=== PATIENT | male | born 2000 | race African-American/Black ===

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

== ENCOUNTER 2020-03-15 17:52 | Emergency (ER) | payer OTHER, SELFPAY ==
[2020-03-15 17:57] VITALS: BP 113/71; PULSE 62; RESP 18; TEMP 37; O2SAT 100
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
[2020-03-15 18:50] VITALS: BP 118/73; PULSE 68; RESP 15; O2SAT 97
== END 2020-03-15 18:52 | disposition home or self-care (01) ==
LOC: ANHED 18:50
PROVIDERS: Emergency Provider Family Medicine
DX: S16.1XXA Strain of muscle, fascia and tendon at neck level, initial encounter (principal); V49.50XA Passenger injured in collision with unspecified motor vehicles in traffic accident, initial encounter
CPT/HCPCS: 99283

== ENCOUNTER 2021-04-19 10:45 | Emergency (ER) | payer OTHER, SELFPAY ==
--- NOTE | ~2021-04-19 | XR_ITS ---
EXAMINATION: XR elbow RT min 3V DATE: 04/19/2021 11:29 INDICATION: Right elbow injury and pain. TECHNIQUE: 4 views of right elbow were obtained. COMPARISON: None. FINDINGS: Bone alignment is normal. No fracture. Joint spaces are well maintained. There is no elbow joint effusion. IMPRESSION: 1. No fracture. Reviewed, dictated and finalized at location A. IMPRESSION: 1. No fracture.
--- NOTE | ~2021-04-19 | XR_ITS ---
EXAMINATION: XR ankle RT min 3V DATE: 04/19/2021 11:29 INDICATION: Lateral right ankle pain post trauma TECHNIQUE: Anteroposterior, oblique, mortise, and lateral views of the right ankle were obtained. COMPARISON: None. FINDINGS: Alignment is normal. No fracture. Small heterotopic ossicle near the tip of the lateral malleolus wi thout evident donor site likely sequela of chronic ankle sprain. Joint spaces are well maintained. N o ankle joint effusion. The soft tissues are unremarkable. IMPRESSION: 1. No acute osseous abnormality. Reviewed, dictated and finalized at location B.
[2021-04-19 10:48] VITALS: BP 104/68; PULSE 71; RESP 15; TEMP 37; O2SAT 100
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
--- NOTE | 2021-04-19 11:18 | PC.NURSE ---
pt to xray
[2021-04-19 11:19] VITALS: BP 104/68; PULSE 71; RESP 15; O2SAT 100
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
[2021-04-19 12:39] VITALS: BP 109/56; PULSE 72; RESP 16; O2SAT 100
== END 2021-04-19 12:39 | disposition home or self-care (01) ==
PROVIDERS: Emergency Provider Family Medicine
DX: S50.01XA Contusion of right elbow, initial encounter (principal); S93.401A Sprain of unspecified ligament of right ankle, initial encounter; V03.10XA Pedestrian on foot injured in collision with car, pick-up truck or van in traffic accident, initial encounter
CPT/HCPCS: 73080; 73610; 99284

== ENCOUNTER 2023-11-13 11:43 | Emergency (ER) | payer OTHER, SELFPAY ==
[2023-11-13 12:10] VITALS: BP 117/76; PULSE 59; RESP 16; TEMP 36.6; O2SAT 100
[2023-11-13 15:17] VITALS: BP 119/80; PULSE 95; RESP 15; O2SAT 100
--- NOTE | 2023-11-13 16:08 | ED.SKABFB ---
HPI - Skin/Abscess/Foreign Bdy General Chief complaint: Skin/Abscess/Foreign Body Stated complaint: ingrown toenail left Time Seen by Provider: 11/13/23 15:55 Source: patient Mode of arrival: ambulatory Limitations: no limitations History of Present Illness HPI narrative: Patient presents with an ingrown toenail his left great toe. He attempted to go to a nail salon and they did cut it slightly at an angle but said they wouldn't cut the portion covered by the cuticle. He has not yet taken any for pain. Pain is rated 3/10 in severity. He states this has been bothering him for nearly the entire month of October. He has a history of recurrent ingrown toenail. No fevers. No trauma to the digit. Related Data Allergies Allergy/AdvReac Type Severity Reaction Status Date / Time No Known Allergies Allergy Verified 11/13/23 11:44 [facility] Past Medical History Medical History (Updated 11/14/23 @ 00:00 by Cristino Keenan) History of ingrown nail Social History Social History Gender identity (if verbalized by the patient): Male Exam Narrative: GENERAL: Well-appearing, well-nourished, and in no acute distress. HEAD: Normocephalic, atraumatic. EYES: Non injected, non icteric ENT: Nares clear, no rhinorrhea or epistaxis. NECK: Supple. CHEST: Speaking in full sentences. No respiratory distress. HEART: Bradycardic rate and rhythm. Brisk capillary refill in left great toe. ABDOMEN: Soft, nondistended. EXTREMITIES: Ingrown toenail at lateral aspect of left great toe. There does appear to be advanced onychocryptosis , heavy granulation tissue.Partial nail removal at the distal edge has been initiated but the wedge terminates before the cuticle. SKIN: Warm, dry, no rash. NEURO: No focal deficits. Alert and oriented. PSYCH: Normal mood and affect. Course Vital Signs Vital signs: Vital Signs Temperature 97.8 F 11/13/23 12:10 Pulse Rate 59 L 11/13/23 12:10 Respiratory Rate 16 11/13/23 12:10 Blood Pressure 117/76 11/13/23 12:10 Pulse Oximetry 100 11/13/23 12:10 Oxygen Delivery Room Air 11/13/23 12:10 Temperature 97.8 F 11/13/23 12:10 Pulse Rate 95 11/13/23 15:17 Respiratory Rate 15 11/13/23 15:17 Blood Pressure 119/80 11/13/23 15:17 Pulse Oximetry 100 11/13/23 15:17 Oxygen Delivery Room Air 11/13/23 12:10 Procedures Nerve Block Nerve Block 1: Nerve block date: 11/13/23 Local Anesthetic: lidocaine 1% Amount of anesthesia used (mL): 4 Side: left Nerve Blocks: digital (great toe) Patient Tolerated Procedure: no complications MDM - Skin/Abscess/Foreign Bdy MDM Narrative Medical decision making narrative: Patient presents with a painful ingrown toenail. In the emergency department he is afebrile with signs notable only for mild bradycardia. Digital block as above. Partial nail removal performed. Patient tolerated well though did not remove granulation tissue. Discharged in stable condition advised to follow up with podiatry. Discharge Plan Discharge Clinical Impression: Ingrown left big toenail Patient Disposition: Home, Self-Care Condition: Stable Instructions: Antibiotic Form, Ingrown Nail (ED), Partial Nail Avulsion for Ingrown Nail (DC) Additional Instructions: Cover with gauze and keep the area clean and dry washing it 2 to 3 times a day but allowing it to fully dry before re-applying any bandage/dressing. If needed you can follow-up with the mail carrier technician listed below. Return to the ED if new/worsening symptoms such as signs of infection (draining pus, fever >100.4F, spreading redness). You can take the prescribed medicatoins for pain. They are safe to take together if needed. Prescriptions: New ibuprofen 600 mg tablet 600 mg PO TID PRN (Reason: pain) Qty: 20 0RF acetaminophen 500 mg capsule 1,000 mg PO Q6H PRN (Reason: pain) Qty: 20 0RF No A
[2023-11-13] MEDS: ACETAMINOPHEN 500 MG TABLET 1000 MG PO (16:16)
[2023-11-13] MEDS: IBUPROFEN 600 MG TABLET PO (18:42)
== END 2023-11-13 18:43 | disposition home or self-care (01) ==
PROVIDERS: Emergency Provider Student in an Organized Health Care Education/Training Program
DX: L60.0 Ingrowing nail (principal)
CPT/HCPCS: 11750; 11765; 99283; A9270